=== PATIENT | male | born 1960 | race Caucasian/White ===

== ENCOUNTER 2018-02-06 12:45 | Emergency (ER) | payer OTHER ==
[~2018-02-06 12:45] MED LIST: ACET-3017 PO; ASA; ASPI-1471 PO; ASPI81TA94 PO; ATEN-65 PO; CETI-176 PO; HTN MED; HYDR12.561 PO; LEVO150T72 PO; LEVO175T42 PO; LEVOXYL; LID5T TOP; LOR5 PO; LORA-629 PO; LORA10TA2 PO; MET800 PO; META400T PO; ROPI0.5T25 PO; ROPI1TAB36 PO; SIMV-49 PO; SOT80 PO; SOTOLOL; TRILIPIX
--- NOTE | 2018-02-06 13:02 | ER Report ---
History and Physical Time Seen By MD: 13:02 Hx. of Stated Complaint: PT REPORTS CHEST PAIN FOR ABOUT ONE HOUR. HAS HISTORY OF CARDIAC ABLATION TWO YEARS AGO. (SHASHA BARROS MD) HPI/ROS CHIEF COMPLAINT: Chest pain HISTORY OF PRESENT ILLNESS: Patient is a 57-year-old male with known history of paroxysmal SVT status post ablation approximately 2 years ago and no further episodes. Patient also has a history of hypercholesterol hypertension and takes Synthroid secondary to thyroid ablation. Patient states that approximately 90 minutes ago he developed central chest pain that is substernal some radiation up into the neck. No shortness of breath no sweating symptoms do not seem to be exertional. He does have a positional component prefers to be sitting up. States that laying down makes things worse. States that soon after the symptoms began after walking to his car from his office he went home to have something to eat and then tried to lay down in symptoms worsened. For this reason he presents to the emergency department for further evaluation. Patient states there is a pleuritic component to the chest pain. Patient denies any nausea or vomiting. Denies diaphoresis. Patient denies the pain radiates to the back or between the shoulder blades. REVIEW OF SYSTEMS: Constitutional: No fever, no chills. Eyes: No discharge. ENT: No sore throat. Cardiovascular: Chest pain, no palpitations or tachycardia Respiratory: No cough, no shortness of breath. Gastrointestinal: No abdominal pain, no vomiting. Musculoskeletal: No back pain. Skin: No rashes. Neurological: No headache. (SHASHA BARROS MD) Allergies: Uncoded Allergies: cottonwood (Allergy, Mild, stuffy nose, 11/14/16) Home Meds Reported Medications Levothyroxine Sodium (LEVOTHYROXINE SODIUM) 175 Mcg Tablet, 1 TAB PO QDAY 05/04/14 Hydrochlorothiazide (HYDROCHLOROTHIAZIDE) 12.5 Mg Tablet, 1 TAB PO QAM 05/04/14 Simvastatin (SIMVASTATIN) 20 Mg Tablet, 1 TAB PO QPM, TAB 05/04/14 Discontinued Reported Medications Cetirizine Hcl (ZYRTEC) 10 Mg Tablet, 10 MG PO QDAY, TAB 11/14/16 Acetaminophen With Codeine # 3 (TYLENOL WITH CODEINE #3 TABLET) 1 Each Tablet, 1 EACH PO PRN PRN for PAIN, TAB 11/14/16 Aspirin (ASPIRIN) 81 Mg Tab.chew, 81 MG PO QDAY, TAB.CHEW 11/14/16 Past Medical/Surgical History Past medical history for SVT status post ablation, history of hypertension, history of hypercholesterol, history of hypothyroid secondary to thyroid abla tion. (SHASHA BARROS MD) Hx Smoking: No Smoking Status: Never Smoker Hx Substance Use Disorder: No Hx Alcohol Use: Yes (SHASHA BARROS MD) Constitutional Vital Sign - Last 24 Hours 02/06/18 02/06/18 02/06/18 02/06/18 12:47 12:53 13:00 13:15 Temp 97.4 Pulse 62 57 47 Resp 14 18 13 B/P (MAP) 129/76 135/89 (104) Pulse Ox 96 95 96 O2 Delivery Room Air 02/06/18 02/06/18 02/06/18 02/06/18 13:30 13:44 13:45 14:00 Pulse 47 Resp 13 15 13 B/P (MAP) 86/64 (71) 70/52 (58) 87/61 (70) Pulse Ox 96 93 95 02/06/18 02/06/18 02/06/18 02/06/18 14:02 14:08 14:15 14:20 Pulse 73 Resp 23 B/P (MAP) 78/59 (65) 88/68 (75) 110/39 (62) Pulse Ox 96 02/06/18 02/06/18 02/06/18 02/06/18 14:29 14:45 15:00 15:15 Resp 7 12 B/P (MAP) 108/64 (79) 115/71 (86) 124/71 (88) 111/70 (84) Pulse Ox 97 96 02/06/18 02/06/18 02/06/18 02/06/18 15:30 15:45 16:00 16:15 Pulse 80 84 75 Resp 30 20 B/P (MAP) 122/72 (89) 115/77 (90) 115/71 (86) 02/06/18 02/06/18 02/06/18 02/06/18 16:30 16:35 16:45 16:50 Pulse 84 87 84 Resp 5 20 20 B/P (MAP) 120/68 (85) 118/68 (85) Pulse Ox 95 95 02/06/18 02/06/18 02/06/18 02/06/18 17:00 17:05 17:15 17:20 Pulse 72 70 Resp 7 12 B/P (MAP) 117/77 (90) 116/79 (91) Pulse Ox 96 96 (MICAH CLINTON V DO) Physical Exam General/Constitutional: Patient is awake, alert, nontoxic and in no acute respiratory distress. Head: Normocephalic and atraumatic. Eyes: Conjunctival clear, Ears:External canals are clear. Tympanic membranes are clear with normal landmarks and light reflex. Nares: No rhinorrhea or bleeding. Turbinates are pink and moist. Oropharyngeal: Mucous membranes are moist. There is no pharyngeal erythema or exudate. There are no palatal petechiae. Uvula is midline and symmetrical. Neck: Supple, no adenopathy. Cardiovascular: Heart is regular rate and rhythm without audible murmurs, rubs or gallops. Pulmonary: Lungs are clear to auscultation bilaterally. There are no wheezes, rales, or rhonchi. Chest rise is symmetrical Abdomen: Soft, nontender, no guarding or peritoneal signs. Extremities: No gross deformities, No peripheral cyanosis. Able to move all 4 extremities. Neuro: Alert and oriented X3, Patient has normal gait. Skin: No rashes, skin is warm dry and well perfused. (SHASHA BARROS MD) Medical Decision Making Data Points Result Diagram: 02/06/18 1300 02/06/18 1300 Laboratory Hematology Test 02/06/18 00:00 02/06/18 13:00 02/06/18 16:57 D-Dimer Quantitative (PE/DVT) 0.34 ug/ml (0-0.50) Red Blood Count 5.55 M/uL (4.00-5.60) Mean Corpuscular Volume 88.1 fL (80.0-96.0) Mean Corpuscular Hemoglobin 30.0 pg (26.0-33.0) Mean Corpuscular Hemoglobin Concent 34.1 g/dL (32.0-36.0) Red Cell Distribution Width 13.8 % (11.5-14.5) Mean Platelet Volume 8.8 fL (7.2-11.1) Neutrophils (%) (Auto) 70.8 % (39.4-72.5) Lymphocytes (%) (Auto) 22.0 % (17.6-49.6) Monocytes (%) (Auto) 5.5 % (4.1-12.4) Eosinophils (%) (Auto) 0.8 % (0.4-6.7) Basophils (%) (Auto) 0.9 % (0.3-1.4) Nucleated RBC Relative Count (auto) 0.1 /100WBC Neutrophils # (Auto) 6.0 K/uL (2.0-7.4) Lymphocytes # (Auto) 1.9 K/uL (1.3-3.6) Monocytes # (Auto) 0.5 K/uL (0.3-1.0) Eosinophils # (Auto) 0.1 K/uL (0.0-0.5) Basophils # (Auto) 0.1 K/uL (0.0-0.1) Nucleated RBC Absolute Count (auto) 0.01 K/uL Sodium Level 142 mmol/L (137-145) Potassium Level 3.2 mmol/L (3.5-5.0) Chloride Level 102 mmol/L (98-107) Carbon Dioxide Level 25 mmol/L (22-30) Blood Urea Nitrogen 20 mg/dl (9-21) Creatinine 1.00 mg/dl (0.66-1.25) Glomerular Filtration Rate Calc > 60.0 Random Glucose 124 mg/dl (75-110) Calcium Level 9.3 mg/dl (8.4-10.2) Magnesium Level 2.0 mg/dl (1.7-2.2) Total Bilirubin 1.2 mg/dl (0.2-1.3) Aspartate Amino Transf (AST/SGOT) 30 U/L (0-35) Alanine Aminotransferase (ALT/SGPT) 39 U/L (0-56) Alkaline Phosphatase 96 U/L (0-126) Total Protein 8.0 g/dl (6.3-8.2) Albumin 4.4 g/dl (3.5-5.0) Troponin I < 0.012 ng/ml Chemistry Test 02/06/18 00:00 02/06/18 13:00 02/06/18 16:57 D-Dimer Quantitative (PE/DVT) 0.34 ug/ml (0-0.50) White Blood Count 8.5 k/uL (4.5-11.0) Red Blood Count 5.55 M/uL (4.00-5.60) Hemoglobin 16.7 g/dL (14.0-18.0) Hematocrit 48.9 % (42.0-52.0) Mean Corpuscular Volume 88.1 fL (80.0-96.0) Mean Corpuscular Hemoglobin 30.0 pg (26.0-33.0) Mean Corpuscular Hemoglobin Concent 34.1 g/dL (32.0-36.0) Red Cell Distribution Width 13.8 % (11.5-14.5) Platelet Count 243 K/uL (150-450) Mean Platelet Volume 8.8 fL (7.2-11.1) Neutrophils (%) (Auto) 70.8 % (39.4-72.5) Lymphocytes (%) (Auto) 22.0 % (17.6-49.6) Monocytes (%) (Auto) 5.5 % (4.1-12.4) Eosinophils (%) (Auto) 0.8 % (0.4-6.7) Basophils (%) (Auto) 0.9 % (0.3-1.4) Nucleated RBC Relative Count (auto) 0.1 /100WBC Neutrophils # (Auto) 6.0 K/uL (2.0-7.4) Lymphocytes # (Auto) 1.9 K/uL (1.3-3.6) Monocytes # (Auto) 0.5 K/uL (0.3-1.0) Eosinophils # (Auto) 0.1 K/uL (0.0-0.5) Basophils # (Auto) 0.1 K/uL (0.0-0.1) Nucleated RBC Absolute Count (auto) 0.01 K/uL Glomerular Filtration Rate Calc > 60.0 Calcium Level 9.3 mg/dl (8.4-10.2) Magnesium Level 2.0 mg/dl (1.7-2.2) Total Bilirubin 1.2 mg/dl (0.2-1.3) Aspartate Amino Transf (AST/SGOT) 30 U/L (0-35) Alanine Aminotransferase (ALT/SGPT) 39 U/L (0-56) Alkaline Phosphatase 96 U/L (0-126) Total Protein 8.0 g/dl (6.3-8.2) Albumin 4.4 g/dl (3.5-5.0) Troponin I < 0.012 ng/ml Coagulation Test 02/06/18 00:00 D-Dimer Quantitative (PE/DVT) 0.34 ug/ml (MICAH CLINTON DO) EKG/Imaging EKG Interpretation EKG shows sinus bradycardia with nonspecific T-wave abnormality in the lateral leads. 02/06/2018 1359:03 pm repeat EKG after 0.4 mg of atropine show a slightly increased heart rate with a Mobitz type II picture. 02/06/2018 2:22:46 pm field underwriter now showing sinus rhythm with a ventricular rate of 70 bpm. No further ectopy or block noted. Monitor Interpretation: Sinus Bradycardia Imaging FACILITY: [facility] PATIENT NAME: Stephen Cervantes : 1960 MR: [id number] V: [id number] EXAM DATE: [id number] ORDERING PHYSICIAN: SHASHA BARROS TECHNOLOGIST: Location: [facility] [place] Patient: Stephen Cervantes : 1960 Visit/Account:[id number] Date of Sevice: 02/06/2018 Exam type: CHEST SINGLE AP History: Chest pain, visual changes Comparison: March 07, 2015. Findings: Cardiac silhouette is mild to moderately enlarged and slightly increased when compared the prior study. There is very mild prominence of the interstitial markings of the lungs. No evidence of focal infiltrates or pleural effusions. IMPRESSION: 1. Cardiomegaly and mild prominence of the interstitial markings which may be related to pulmonary edema. Clinical correlation needed Report Dictated By: Carole De Dios MD at 02/06/2018 1:35 PM Report E-Signed By: Carole De Dios MD at 02/06/2018 1:36 PM WSN:[email or web address] (SHASHA BARROS MD) ED Course/Re-evaluation ED Course 02/06/2018 1:24:49 pm patient with chest pain that began approximately 90 minut es prior to presentation. Pleuritic component. We will perform cardiac workup including d-dimer. We'll repeat the troponin at 4 hour window. 02/06/2018 2:00:42 pm patient still complaining of significant anterior chest pain worse with deep breath states feels better sitting up. Heart rate in the low 40s with blood pressure initially normal at 135 systolic upon arrival and now is in the low 80s upper 70s systolic. We will give 0.4 mg of atropine at this time. We will also try santo dose of fentanyl to treat pain. He currently describes the pain as 10 out of 10. Patient is diaphoretic and pale appearing at this time. I we have placed pacer pads on the patient and he is hooked up to the life pack at this time. 02/06/2018 2:20:33 pm patient's pain has now decreased from 10 out of 10-6 out of 10 after 0.4 mg of atropine heart rate is now in the 70s. Patient is also received a total of 50 g of fentanyl. Patient's color appears better he is no longer diaphoretic. A bedside ultrasound was performed which did not show any apparent pericardial effusion. Plan will be CTA of the chest abdomen pelvis looking for possible aortic dissection. 02/06/2018 2:28:48 pm a 2nd IV placed. Heart rate remains in the mid 70s current blood pressure is now 110/39 patient reports pain at 3 out of 10 in intensity. We will sent to CT scan him at this time Decision to Disposition Date: Feb 07, 2018 Decision to Disposition Time: 18:00 Turned Over 02/06/2018 3:38:30 pm patient turned over to at this time. History physical exam all pertinent lab data and imaging studies were reviewed. Briefly patient had an episode of rheumatic bradycardia with heart rate down to 42 bpm and blood pressure 78 over palp. This responded to 0.4 mg of atropine and santo fentanyl doses for pain. Heart rate has now been between 79 bpm repeat and 3rd EKG shows a sinus rhythm with occasional PACs with a ventricular rate of 70 bpm patient states pain is 0-1 out of 10 in intensity at this time. Plan is to follow-up and CT scan of the chest abdomen pelvis. We will discuss the case with administration professional when workup is complete along with repeat 4 hour per troponin. (SHASHA BARROS MD) ED Course 02/06/2018 6:00:[address] Sanchez, Front Desk Person at [facility]. Reviewed case. He does not feel pt needs admission. Feels pt may have vasovagaled causing the hypotension and bradycardia. he as not too concerned with the mobitz II after the atropine since he has not been in any block since that episode. Did feel he needed to be seen by Dr. Bugress (pts administration professional) in next week or two. If pt did not want to go home he recommend our hospitalist admit on tele to monitor overnight but he felt that was not necessary. 02/06/2018 6:10:48 pm PT wants to go home. "i dont want to be admitted". Not sure what is causing pts chest pain. Feels better sitting up could be early pericarditis however no pericardial effusion or ekg changes. Pt states "i can always call 911 if it reoccurs". Pt state he will call Dr. Burgess to schedule an appt. I am attempting to schedule a holter PT going home with holter Decision to Disposition Date: Feb 06, 2018 Decision to Disposition Time: 18:12 (MICAH CLINTON DO) Depart Departure Latest Vital Signs Vital Signs Date Time Temp Pulse Resp B/P (MAP) Pulse Ox O2 Delivery O2 Flow Rate FiO2 02/06/18 17:20 70 12 96 02/06/18 17:15 116/79 (91) 02/06/18 12:47 97.4 Room Air (MICAH CLINTON DO) Impression: Primary Impression: Hypokalemia Additional Impressions: Symptomatic bradycardia Chest pain Condition: Improved Disposition: HOME OR SELF-CARE Referrals: GHISLAINE BLAKE MD (PCP) Patient Instructions: GENERAL ER DISCHARGE INSTRUCTIONS Additional Instructions: Continue your current medications. Follow up with Dr. Burgess, cardiology. Call tomorrow to arrange follow up next week. We are sending you home with a holter to monitor your heart rhythm. Return if symptoms worsen prior to seeing your administration professional. Problem Qualifiers Additional Impressions: Chest pain Chest pain type: unspecified Qualified Codes: R07.9 - Chest pain, unspecified SHASHA BARROS MD Feb 06, 2018 13:02 MICAH CLINTON DO Feb 06, 2018 18:09
[2018-02-06] MEDS ORDERED: ASPIRIN 81 MG CHEW PO ONE (13:10)
[2018-02-06 13:14] LABS: PLATELET COUNT, AUTOMATED 243 K/uL (150-450)
[2018-02-06] MEDS ORDERED: fentaNYL CITR 100 MCG/2 ML AMP IVP ONE ×3 (13:20→14:30)
--- NOTE | 2018-02-06 13:36 | EKG ---
FACILITY: [facility] PATIENT NAME: KHADRA RAINES : [id number] MR: [id number] V: [id number] EXAM DATE: ORDERING PHYSICIAN: SHASHA BARROS TECHNOLOGIST: FREDDY Test Reason : CHEST PAIN, NUMBNESS Blood Pressure : / mmHG Vent. Rate : 047 BPM Atrial Rate : 047 BPM P-R Int : 160 ms QRS Dur : 098 ms QT Int : 462 ms P-R-T Axes : 035 -09 000 degrees QTc Int : 408 ms Marked sinus bradycardia Nonspecific T wave abnormality Abnormal ECG When compared with ECG of 13-JUL-2015 15:10, Now with marked bradycardia Confirmed by Noel Wood ([id number]) on 02/06/2018 10:35:52 PM Referred By: PAPO Confirmed By:Noel Seo
[2018-02-06] MEDS ORDERED: NS(*) 0.9% 500 ML BAG 500 ML IV ONE (13:40)
[2018-02-06] MEDS ORDERED: ACETAMINOPHEN 325 MG TAB PO ONE (13:40)
--- NOTE | 2018-02-06 13:41 | RADIOLOGY IMAGING REPORT ---
FACILITY: [facility] [place] PATIENT NAME: Stephen Cervantes : 1960 MR: [id number] V: [id number] EXAM DATE: [id number] ORDERING PHYSICIAN: SHASHA BARROS TECHNOLOGIST: Location: [facility] Patient: Stephen Cervantes : 1960 Visit/Account:[id number] Date of Sevice: 02/06/2018 Exam type: CHEST SINGLE AP History: Chest pain, visual changes Comparison: March 07, 2015. Findings: Cardiac silhouette is mild to moderately enlarged and slightly increased when compared the prior stud y. There is very mild prominence of the interstitial markings of the lungs. No evidence of focal in filtrates or pleural effusions. IMPRESSION: 1. Cardiomegaly and mild prominence of the interstitial markings which may be related to pulmonary e jesi. Clinical correlation needed Report Dictated By: Carole De Dios MD at 02/06/2018 1:35 PM Report E-Signed By: Carole De Dios MD at 02/06/2018 1:36 PM WSN:[email or web address]
[2018-02-06] MEDS ORDERED: ATROPINE SUL 1 MG/ML VIAL INH ONE (13:55)
[2018-02-06] MEDS ORDERED: ONDANSETRON 4 MG/2 ML VIAL IVP ONE (13:55)
[2018-02-06] MEDS ORDERED: ATROPINE SUL 0.4 MG/ML VIAL ONE ×2 (13:57→14:07)
[2018-02-06] MEDS ORDERED: ONDANSETRON 4 MG/2 ML VIAL ONE (13:57)
[2018-02-06] MEDS ORDERED: ATROPINE SUL 0.4 MG/ML VIAL IVP ONE (14:00)
[2018-02-06] MEDS ORDERED: fentaNYL CITR 100 MCG/2 ML AMP ONE (14:06)
--- NOTE | 2018-02-06 14:14 | EKG ---
FACILITY: [facility] [place] PATIENT NAME: KHADRA RAINES : [id number] MR: [id number] V: [id number] EXAM DATE: ORDERING PHYSICIAN: SHASHA BARROS TECHNOLOGIST: FREDDY Test Reason : REPEAT Blood Pressure : / mmHG Vent. Rate : 056 BPM Atrial Rate : 083 BPM P-R Int : 000 ms QRS Dur : 090 ms QT Int : 420 ms P-R-T Axes : 010 -18 000 degrees QTc Int : 405 ms Sinus rhythm with periods of 3rd degree heart block with ventricular escape rhythm Nonspecific T wave abnormality Abnormal ECG When compared with ECG of 06-FEB-2018 13:10, Transient 3rd degree heart block now present with ventricular escape rhythm Confirmed by Noel Wood ([id number]) on 02/06/2018 10:58:08 PM Referred By: PAPO Confirmed By:Noel Seo
[2018-02-06] MEDS ORDERED: IOPAMIDOL 76% 100 ML INFUS BTL 100 ML ONE (14:42)
[2018-02-06] MEDS ORDERED: NS(*) 0.9% 50 ML BAG 50 ML ONE (14:42)
[2018-02-06] MEDS ORDERED: POTASSIUM CHL 20 MEQ TABCR PO ONE (15:25)
--- NOTE | 2018-02-06 15:47 | RADIOLOGY IMAGING REPORT ---
FACILITY: [facility] PATIENT NAME: Stephen Cervantes : 1960 MR: [id number] V: [id number] EXAM DATE: ORDERING PHYSICIAN: SHASHA BARROS TECHNOLOGIST: Location: [facility] [place] Patient: Stephen Cervantes : 1960 Visit/Account:[id number] Date of Sevice: 02/06/2018 EXAMINATION: CTA of the chest, abdomen, and pelvis without and with IV contrast HISTORY: Chest pain. Hypotension. TECHNIQUE: Axial CT images of the chest, abdomen, and pelvis were initially obtained without IV contr ast. Thin axial CT images of the chest, abdomen, and pelvis were then obtained with IV contrast durin g maximal arterial opacification. Reconstruction of the source data set includes multiplanar 2D sagit kathi and coronal images, and 3D coronal thin slab MIP images. Mobile Application Architect images have been stored o n PACS. One of the following dose optimization techniques was utilized in the performance of this exam: Autom ated exposure control; adjustment of the mA and/or kV according to the patient's size; or use of an i terative reconstruction technique. Specific details can be referenced in the facility's radiology C T exam operational policy. Contrast: 100 mL of IV Isovue-370. COMPARISON: None. FINDINGS: Angiographic findings: Thoracic aorta: The thoracic aorta is patent and normal in caliber, without aneurysm or dissection. T he thoracic aorta measures 3.4 cm along the mid ascending aorta, 3.0 cm along the arch, and 2.6 cm al darion the mid descending thoracic aorta. Origins of the great vessels are widely patent along the aorti c arch. There is common origin of the brachiocephalic artery and left common carotid artery, a normal anatomic variant. Pulmonary arteries: Exam was not performed with pulmonary embolism protocol. No evidence of any large central pulmonary artery filling defect. Heart: Normal heart size. No pericardial effusion. No coronary artery calcification. Abdominal aorta: The abdominal aorta is patent and normal in caliber, without aneurysm, dissection, o r stenosis. Iliac arteries: The bilateral common iliac, external iliac, and internal iliac arteries are patent an d normal in caliber. Abdominal aorta branch vessels: The celiac artery, SMA, and WILLIE are patent and normal in caliber. Sin gle renal artery present on each side. Bilateral renal arteries are widely patent. Nonvascular findings: Lungs and pleura: The lungs are clear. No focal consolidation or pleural effusion. No pneumothorax. The central airways are patent. Mediastinum and crystal: Negative. Liver: Negative. Gallbladder and bile ducts: Negative. Spleen: Calcified granulomas in the spleen. Pancreas: Negative. Adrenal glands: Negative. Kidneys: No urinary calculi or hydronephrosis. Normal size and morphology of both kidneys. Small lef t renal cyst. Bowel and peritoneum: The small bowel and colon are normal in caliber, without evidence of obstructi on or any focal inflammatory process. Normal appendix. No free fluid or free intraperitoneal air. Pelvic structures: Negative. Lymph node assessment: Negative. Musculoskeletal: Negative. Body wall: Negative. IMPRESSION: 1. The thoracic and abdominal aorta are patent and normal in caliber. No aortic aneurysm or dissectio n. 2. No other acute findings in the chest, abdomen, or pelvis on arterial phase imaging. Report Dictated By: Jcarlos Argueta MD at 02/06/2018 3:34 PM Report E-Signed By: Jcarlos Argueta MD at 02/06/2018 3:42 PM WSN:[id number]
[2018-02-06 18:30] VITALS: BP 124/76
[2018-02-06] MEDS ORDERED: NS(*) 0.9% 1000 ML BAG 1,000 ML IV ONE (21:35)
--- NOTE | 2018-02-07 08:28 | EKG ---
FACILITY: [facility] PATIENT NAME: KHADRA RAINES : [id number] MR: [id number] V: [id number] EXAM DATE: ORDERING PHYSICIAN: SHASHA BARROS TECHNOLOGIST: FREDDY Test Reason : REPEAT X 2 Blood Pressure : / mmHG Vent. Rate : 070 BPM Atrial Rate : 079 BPM P-R Int : 170 ms QRS Dur : 098 ms QT Int : 346 ms P-R-T Axes : 044 -14 016 degrees QTc Int : 373 ms Sinus rhythm with premature atrial complexes with junctional escape complexes Nonspecific ST and T wave abnormality Abnormal ECG No previous ECGs available Confirmed by GHISLAINE CARRILLO ([id number]) on 02/07/2018 10:45:45 AM Referred By: PAPO Confirmed By:GHISLAINE CARRILLO
== END 2018-02-06 19:00 | disposition home or self-care (01) ==
LOC: ER 12:57
DX: E87.6 Hypokalemia (principal); R00.1 Bradycardia, unspecified; R07.9 Chest pain, unspecified
CPT/HCPCS: 71045; 71275; 74174; 83735; 84484; 85025; 85379; 93005; 93225; 96361; 96374; 96375; 96376; 99285; J0461; J2405; J3010; J7030; J7040; J7050; Q9967; 82040; 82247; 82310; 82374; 82435; 82565; 82947; 84075; 84132; 84155; 84295; 84450; 84460; 84520

== ENCOUNTER → 2018-02-13 | Outpatient (CLI) | payer OTHER ==
--- NOTE | 2018-02-13 20:12 | RT STRESS TEST REPORT ---
FACILITY: [facility] PATIENT NAME: KHADRA RAINES : [id number] MR: [id number] V: [id number] EXAM DATE: ORDERING PHYSICIAN: GHISLAINE CARRILLO TECHNOLOGIST: Tahira Acquisition Time: 2018-02-13 13:41:26 Total Exercise Time: 00:09:32 Test Indications: Chest Pain / Discomfort Medications: hydrochrlzin (blood pressure) symistat Protocol: BRUCE2 Max HR: 176 BPM 109% of Pred: 161 BPM Max BP: 219/096 mmHG Max Work Load: 11.0 METS Patient asymptomatic throughout test. Study was stopped due to increased blood pressure and equipment inability to get reliable continued r eadings after attempting to adjust while testing in progress. Occasional isolated PVC were seen during exercise, no significant ST segment depression or elevation were seen. Confirmed by Noel Wood ([id number]) on 02/13/2018 8:11:58 PM Referred By: Overread By: Noel Seo
== END ==
LOC: RESP 13:34
DX: R07.89 Other chest pain (principal)
CPT/HCPCS: 93017

== ENCOUNTER → 2018-02-18 | Outpatient (REF) | payer OTHER | LOC: ZZSENDIN 12:00 | PROVIDERS: ATTEND Urology | DX: C61 Malignant neoplasm of prostate (principal) | CPT/HCPCS: 88305; 88344 ==

== ENCOUNTER 2018-05-30 08:21 | Outpatient (RCR) | payer OTHER ==
[2018-03-11 09:58] VITALS: BP 156/98
[2018-03-11 11:39] LABS: PLATELET COUNT, AUTOMATED 225 K/uL (150-450)
--- NOTE | 2018-03-12 02:55 | TOBIN CONSULT ---
EVENT DATE: March 11, 2018 DIAGNOSIS Ezel 6 adenocarcinoma of the prostate, tumor occupying 4 of 12 core biopsy specimens on ultrasound dated 02/19/18. Tumor occupied 40% of the right lateral base, 10% of the right middle biopsy, 10% of the left lateral middle biopsy, 5% of the left lateral base biopsy. Pre-biopsy PSA of 10.8 ng/mL. Prostate size 37 mm x 45 mm x 40 mm. Stage T1c. HISTORY This is a 57-year-old gentleman who is referred for discussion of therapeutic options by Dr. Parsons for recently diagnosed prostate carcinoma. Patient was seen accompanied by his today. The patient denies any family history of prostate carcinoma, to his knowledge. The patient states his first PSA was obtained in October 2017, which was elevated at 9.8 ng/mL. The value was repeated on 12/04/17, which was elevated further at 10.8 ng/mL, and biopsy was subsequently recommended. The initial assessment was started by Dr. Herrera. The patient did have a CBC and CMP on 02/06/18, which were normal. Patient was referred to Dr. Parsons, and ultrasound-guided biopsy findings were listed above. No post-biopsy complications. According to the patient, he has a reasonably good stream. AUA score is 8. He generally gets up twice at night. He denies any intermittency. He does have some frequency and occasional urgency, however, no weak stream. Patient denies any persistent bone pain. Does have some joint stiffness. The patient did have a CT scan of the chest, abdomen and pelvis on 02/06/18 with symptoms of chest pain. There was no evidence of any dissection of the great vessels. No pelvic lymphadenopathy when I reviewed the films. The prostate is mildly enlarged, but seminal vesicles appear to be symmetric. There is no comment regarding the fat planes around the prostate, since they are essentially absent due to extension to the sidewall. Liver and lungs were unremarkable. No signs of bony metastatic disease. Patient did have some mild cardiomegaly on a chest x-ray dated 02/06/18. MEDICATIONS 1. Levothyroxine 175 mcg a day. 2. Hydrochlorothiazide 12.5 mg a day. PAST MEDICAL HISTORY 1. Prostate carcinoma with history listed above. 2. History of supraventricular tachycardia, status post cardiac ablation two years ago. 3. History of Graves disease, treated with iodine-131 therapy in 2007. 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 He is with three children, ages 31, 34, and 27. Nonsmoker. REVIEW OF SYSTEMS Negative with the exception of some mild joint pain/stiffness. AUA score was 8. Patient was seen with his , Rowan. PHYSICAL EXAMINATION GENERAL: Physical exam reveals a pleasant 57-year-old male. VITALS: Weight 262, height 68 inches, blood pressure 156/98, pulse 66, respirations 14, O2 saturation 95% on room air. LUNGS: Clear to auscultation bilaterally. HEART: Heart sounds regular. No audible murmur. ABDOMEN: Soft. No gross organomegaly, mass, or tenderness. RECTAL: Deferred due to a recent exam by Urology (patient has been told he has no palpable nodules). EXTREMITIES: No edema or cyanosis. NEUROLOGICAL: Intact. IMPRESSION This is a 57-year-old gentleman who presents with a significantly elevated PSA and was subsequently found to have a mildly to moderately differentiated adenocarcinoma involving 4 of 12 core biopsies. Two biopsies were positive on the right lobe and two biopsies were positive in the left lobe. No evidence of distant metastatic disease. The patient has been appropriately counseled regarding options for prostate carcinoma management by Dr. Parsons. The [facility] nomogram predicts probability of extracapsular extension to be 47% for this gentleman, lymph node involvement at 2%, and seminal vesicle invasion at 2%. Given the significant PSA elevation and pathologic findings, I would favor treating the patient with external beam radiation therapy alone or external beam radiotherapy plus brachytherapy to maximize the probability of sustained tumor control on long-term basis. The probability of sustained PSA progression-free survival should be on the order of 90% to 92%. Typical side effects include urinary urgency and frequency during the radiotherapy and for a time period of four to eight weeks after. Patients may experience aggravation of hemorrhoids or rectal bleeding, which is generally on the order of 3%. Probability of a decrease in sexual function is typically in the 20% range and is highly variable depending on patient age and prior function. I outlined the treatment details, per his request, of both external beam radiotherapy and prostate brachytherapy. He was concerned about brachytherapy, as he was appropriately informed that he could not hold any grandchildren in his lap for the first 30 days, per present [facility] recommendations. That said, I told the patient that I think both options would be excellent. The radiotherapy target dose will be 75 to 79 Gy if he chooses external beam radiotherapy program over 8-1/2 weeks. If he chooses the external beam radiotherapy and prostate brachytherapy, he would have five weeks of external beam radiotherapy, mapping at three weeks later, and then the brachytherapy seeds at week 6. The radiation doses are significantly higher with the second option. I would select margins of approximately 5 mm laterally and 2 to 4 mm in the posterior-anterior plane. [facility] beam CT planning will be utilized to maximize tumor targeting advantages. The patient has been thinking about his treatment options this past month, and he seemed very interested in the external beam radiotherapy program. As stated above, I told the patient that both options would be reasonable if he so selects. Patient also was informed that he could choose radical prostatectomy as well as a standard therapy option. All three options listed above are category 1 recommendations per [facility] guidelines. The patient asked if he could delay starting the radiation therapy course until after April 22. I told him that I would like to obtain an updated PSA today, and that information would be helpful in determining therapeutic treatment timing. He is approximately one month remote from the biopsy, and therefore the information should be looked at with some caution. The PSA did come back in the 11 range this afternoon, and the patient will be informed of the result by Nursing later this evening. The patient asked appropriate questions over a 90-minute consultation. He will meet again with Dr. Parsons in the next seven days and let us know his decision going forward after that meeting. Thank you for the referral and opportunity to discuss options with Mr. Cervantes and his spouse today. FRANCK
--- NOTE | 2018-04-29 09:03 | NUR ---
patient completed initial HADS form. Patient scored D:1, A:2 - both normal scores. Will re-evaluate toward the end of his treatment.
[2018-05-12 08:48] VITALS: BP 148/99
[~2018-05-30 08:21] MED LIST changes: +ACET-1966 PO; +IBUP-56 PO
== END 2018-06-08 ==
LOC: RAON 08:21
PROVIDERS: ATTEND Radiology Radiation Oncology
DX: Z51.0 Encounter for antineoplastic radiation therapy (principal); C61 Malignant neoplasm of prostate; M25.50 Pain in unspecified joint
CPT/HCPCS: 36415; 77280; 77290; 77300; 77301; 77336; 77338; 77385; 82040; 82247; 82310; 82374; 82435; 82565; 82947; 84075; 84132; 84153; 84155; 84295; 84450; 84460; 84520; 85025; 99202